=== PATIENT | female | born 1995 ===

== ENCOUNTER → 2017-03-06 | Outpatient (CLI) | payer OTHER ==
[~2017-03-06] MED LIST: IBUP600 PO
[2017-03-08 11:15] LABS: HCV Non Reactive (NR)
== END | disposition home or self-care (01) ==
LOC: LAB EV 16:59
PROVIDERS: Family Medicine
DX: L02.01 Cutaneous abscess of face (principal); Z77.21 Contact with and (suspected) exposure to potentially hazardous body fluids; Z20.9 Contact with and (suspected) exposure to unspecified communicable disease
CPT/HCPCS: 84460; 86706; 86803; 87070; 87075; 87205; 87340; 87389